=== PATIENT | male | born 1955 | race American Indian/Alaskan Native ===

== ENCOUNTER 2019-01-28 13:46 | Emergency (ER) | payer BC ==
--- NOTE | 2019-01-28 14:11 | Emergency Department Report ---
ED Dizziness HPI - General Chief Complaint: Dizziness Stated Complaint: DIZZINESS Time Seen by Provider: 01/28/19 13:54 Source: patient, EMS Mode of arrival: Stretcher Limitations: No Limitations - History of Present Illness Initial Comments: Mr. Hough is a very pleasant healthy 63-year-old male who presents from grocery store via EMS. He drove to the grocery store without incident. While at the register, he felt lightheaded with sweats. He felt faint. With the assistance of the grocery store staff member, he was gently brougth to the floor. He did not pass out. No preceding symptoms of chest pain or palpitations. However he did feel lightheaded and sweaty prior to the near syncopal episode. Last physical 3 years ago. He recently moved from [facility] 3 weeks ago. 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 No strenuous activity or exercise. He is currently wearing a large fat burning waist belt under his clothes. EMS reports hypotension 81/53 in the field. He ate cereal this morning. Ate a full meal last night. He does not smoke cigarettes. He drinks alcohol wine occasionally. 10-year-old [employer] Grew up in [place], [place] near [place]. Mother age 35 due to complications of rheumatic arthritis. Father age 90 without hx of health problems. Complaint: lightheadedness, near syncope -: Sudden, This afternoon Timing: sudden onset Description: lightheadedness History of Same: No History of Trauma: No Severity: mild Improves With: other (seated position) Associated Symptoms: diaphoresis - Related Data Allergies Allergy/AdvReac Type Severity Reaction Status Date / Time No Known Allergies Allergy Unverified 01/28/19 13:51 ED Review of Systems ROS: Stated complaint: DIZZINESS Other details as noted in HPI Comment: All other systems reviewed and negative Constitutional: denies: fever, malaise Respiratory: denies: cough Cardiovascular: denies: chest pain, edema Gastrointestinal: denies: abdominal pain, nausea, vomiting Neurological: denies: headache ED Past Medical Hx - Past Medical History Previous Medical History?: No - Surgical History Past Surgical History?: No - Family History Family history: no significant - Social History Smoking Status: Never Smoker Substance Use Type: Alcohol ED Physical Exam - General Limitations: No Limitations General appearance: alert, in no apparent distress - Head Head exam: Present: atraumatic, normocephalic - Eye Eye exam: Present: normal appearance - ENT ENT exam: Present: mucous membranes moist - Neck Neck exam: Present: normal inspection - Respiratory Respiratory exam: Present: normal lung sounds bilaterally. Absent: respiratory distress, wheezes, rales, rhonchi - Cardiovascular Cardiovascular Exam: Present: regular rate, normal rhythm, normal heart sounds. Absent: systolic murmur, diastolic murmur, rubs, gallop - GI/Abdominal GI/Abdominal exam: Present: soft, normal bowel sounds, other (around upper abdomen: large cloth/wool abdominal band called "fat burner" ). Absent: distended, tenderness, guarding, rebound - Rectal Rectal exam: Present: deferred - Extremities Exam Extremities exam: Present: normal inspection - Back Exam Back exam: Present: normal inspection - Neurological Exam Neurological exam: Present: alert, oriented X3 - Psychiatric Psychiatric exam: Present: normal affect, normal mood - Skin Skin exam: Present: warm, dry, intact, normal color. Absent: rash ED Course Vital Signs 01/28/19 01/28/19 01/28/19 13:48 13:57 14:00 Temperature 97.7 F Pulse Rate 76 71 Respiratory 18 24 17 Rate Blood Pressure 164/88 Blood Pressure 164/88 [Right] O2 Sat by Pulse 98 98 Oximetry 01/28/19 01/28/19 01/28/19 14:30 15:00 15:30 Temperature Pulse Rate 70 76 74 Respiratory 21 22 23 Rate Blood Pressure 113/77 113/77 Blood Pressure [Right] O2 Sat by Pulse 97 97 96 Oximetry ED Medical Decision Making - Lab Data Result diagrams: 01/28/19 14:07 01/28/19 14:07 Laboratory Results - last 24 hr 01/28/19 01/28/19 01/28/19 14:07 14:07 14:07 WBC 3.5 L RBC 4.40 Hgb 12.7 Hct 38.8 MCV 88 MCH 29 MCHC 33 RDW 14.7 Plt Count 198 Lymph % (Auto) 43.1 H Rock % (Auto) 10.0 H Eos % (Auto) 4.1 Baso % (Auto) 1.3 Lymph # 1.5 Rock # 0.3 Eos # 0.1 Baso # 0.0 Seg Neutrophils % 41.5 Seg Neutrophils # 1.4 L D-Dimer Sodium 141 Potassium 5.1 H Chloride 104.0 Carbon Dioxide 26 Anion Gap 16 BUN 14 Creatinine 0.9 Estimated GFR > 60 BUN/Creatinine Ratio 16 Glucose 134 H Calcium 8.5 Total Bilirubin 0.40 AST 20 ALT 21 Alkaline Phosphatase 57 Troponin T < 0.010 Total Protein 6.6 Albumin 3.6 L Albumin/Globulin Ratio 1.2 Plasma/Serum Alcohol < 0.01 01/28/19 14:07 WBC RBC Hgb Hct MCV MCH MCHC RDW Plt Count Lymph % (Auto) Rock % (Auto) Eos % (Auto) Baso % (Auto) Lymph # Rock # Eos # Baso # Seg Neutrophils % Seg Neutrophils # D-Dimer 136.37 Sodium Potassium Chloride Carbon Dioxide Anion Gap BUN Creatinine Estimated GFR BUN/Creatinine Ratio Glucose Calcium Total Bilirubin AST ALT Alkaline Phosphatase Troponin T Total Protein Albumin Albumin/Globulin Ratio Plasma/Serum Alcohol - EKG Data EKG shows normal: sinus rhythm, axis, intervals, QRS complexes, ST-T waves Rate: normal - Radiology Data AP portable chest radiograph no acute process according to radiology report - Medical Decision Making Near syncope, vasovagal syndrome after prolonged standing with hypotension. In the hot temperature, I suspect Mr. Hough did become overwhelmed with heat. He has been decreasing food intake in order to lose weight. Normal EKG. No risk factors for ACS or arrhythmia. Discharged home. Normal workup here in the ED. Normal d-dimer. Normal troponin. Critical care attestation.: If time is entered above; I have spent that time in minutes in the direct care of this critically ill patient, excluding procedure time. ED Disposition Clinical Impression: Near syncope Disposition: - TO HOME OR SELFCARE Is pt being admited?: No Does the pt Need Aspirin: No Condition: Stable Instructions: Near Syncope (ED) Referrals: CHAYITO HUFFMAN MD [Staff Physician] - 3-5 Days
[2019-01-28 14:21] LABS: Basophils % (Auto) 1.3 % (0.0-1.8); Eosinophils # (Auto) 0.1 K/mm3 (0.0-0.4); Eosinophils % (Auto) 4.1 % (0.0-4.3); Hematocrit 38.8 % (35.5-45.6); Hemoglobin 12.7 gm/dl (11.8-15.2); Lymphocytes # (Auto) 1.5 K/mm3 (1.2-5.4); Lymphocytes % (Auto) 43.1 % (13.4-35.0); Mean Corpuscular HGB Conc 33 % (32-34); Mean Corpuscular Volume 88 fl (84-94); Monocytes # (Auto) 0.3 K/mm3 (0.0-0.8); Platelet Count 198 K/mm3 (140-440); Red Cell Distribution Width 14.7 % (13.2-15.2)
[2019-01-28 14:44] LABS: Alanine Aminotransferase 21 units/L (7-56); Albumin 3.6 g/dL (3.9-5); BUN/Creatinine Ratio 16; Blood Urea Nitrogen 14 mg/dL (9-20); Calcium 8.5 mg/dL (8.4-10.2); Hemolysis Index 3
[2019-01-28 14:55] VITALS: BP 113/77
--- NOTE | 2019-01-28 15:16 | XRay Report ---
PROCEDURE: XR CHEST 1V AP TECHNIQUE: Chest radiograph single view. HISTORY: Lightheadedness/Dizziness COMPARISONS: None . FINDINGS: Heart: Normal. Mediastinum/Vessels: Normal. Lungs/Pleural space: No infiltrate, effusion, or pneumothorax. Bony thorax: No acute osseous abnormality. Life support devices: None. IMPRESSION: No radiographic evidence of acute cardiopulmonary abnormality. This document is electronically signed by Nany Mancini MD., Jan 28 2019 03:14:10 PM ET
== END 2019-01-28 16:06 | disposition home or self-care (01) ==
LOC: ED 13:46
DX: R55 Syncope and collapse (principal); I95.9 Hypotension, unspecified
CPT/HCPCS: 36415; 71045; 80053; 84484; 85025; 85379; 93005; 93010; 99284; G0480; 80320

== ENCOUNTER 2022-04-05 08:31 | Emergency (ER) | payer BC ==
--- NOTE | 2022-04-05 09:57 | Emergency Department Report ---
ED General Adult HPI - General Chief complaint: Hyperglycemia Stated complaint: BLOOD SUGAR NEED CHECK Time Seen by Provider: 04/05/22 09:13 Source: patient, family Mode of arrival: Ambulatory Limitations: No Limitations - History of Present Illness Initial comments: Patient is a 66-year-old male with history of diabetes recently placed on insulin. States he is scheduled for diabetes management classes in which she will be instructed on how to use his equipment/medication. He presents here requesting blood glucose check along with education on how to use his insulin/glucometer. He denies any current symptoms. Severity scale (0 -10): 0 - Related Data Allergies Allergy/AdvReac Type Severity Reaction Status Date / Time No Known Allergies Allergy Unverified 01/28/19 13:51 ED Review of Systems ROS: Stated complaint: BLOOD SUGAR NEED CHECK Other details as noted in HPI Constitutional: denies: chills, fever Respiratory: denies: cough, shortness of breath, wheezing Cardiovascular: denies: chest pain, palpitations Gastrointestinal: denies: abdominal pain, nausea, diarrhea Genitourinary: denies: urgency, dysuria Musculoskeletal: denies: back pain, joint swelling, arthralgia Skin: denies: rash, lesions Neurological: denies: headache, weakness, paresthesias Psychiatric: denies: anxiety, depression ED Past Medical Hx - Past Medical History Hx Diabetes: Yes Hx Arthritis: Yes - Surgical History Past Surgical History?: Yes Additional Surgical History: right leg - Social History Smoking Status: Never Smoker ED Physical Exam - General Limitations: No Limitations General appearance: alert, in no apparent distress - Respiratory Respiratory exam: Present: normal lung sounds bilaterally. Absent: respiratory distress - Cardiovascular Cardiovascular Exam: Present: regular rate, normal rhythm, normal heart sounds - GI/Abdominal GI/Abdominal exam: Present: soft. Absent: distended, tenderness - Neurological Exam Neurological exam: Present: alert, oriented X3 - Psychiatric Psychiatric exam: Present: normal affect, normal mood - Skin Skin exam: Present: warm, dry, intact, normal color ED Course Vital Signs 04/05/22 04/05/22 08:49 09:33 Temperature 97.8 F Pulse Rate 80 75 Respiratory 20 14 Rate Blood Pressure 122/64 Blood Pressure 128/76 [Right] O2 Sat by Pulse 100 100 Oximetry ED Medical Decision Making - Medical Decision Making Fingerstick glucose 251. Patient is in no acute distress with stable vital signs. I encouraged him to follow-up with his scheduled diabetes class however instructed him to always check his blood glucose prior to administration of insulin, as well as prior to bed and upon wakening or if not feeling well. Stable for discharge. Critical care attestation.: If time is entered above; I have spent that time in minutes in the direct care of this critically ill patient, excluding procedure time. ED Disposition Clinical Impression: Diabetes mellitus Disposition: HOME / SELF CARE / HOMELESS Is pt being admited?: No Condition: Stable Instructions: Diabetes Mellitus Type 2 in Adults (ED), Insulin Treatment for Diabetes Mellitus Additional Instructions: Please follow-up with your diabetes class as scheduled. Remember to check your blood sugar prior to administration of insulin as this will determine how much you will need to administer. You should also check your blood sugar 1 hour after eating. You should also check your blood sugar prior to going to bed and upon wakening. You should also check your blood sugar anytime you are not feeling well. Time of Disposition: 10:00
[2022-04-05 09:58] LABS: Basophils % (Auto) 0.6 % (0.0-1.8); Eosinophils % (Auto) 0.4 % (0.0-4.3); Hemoglobin 7.4 gm/dl (11.8-15.2); Lymphocytes # (Auto) 1.2 K/mm3 (1.2-5.4); Lymphocytes % (Auto) 15.1 % (13.4-35.0); Mean Corpuscular HGB Conc 32 % (32-34); Mean Corpuscular Volume 88 fl (84-94); Monocytes # (Auto) 0.8 K/mm3 (0.0-0.8); Monocytes % (Auto) 9.9 % (0.0-7.3); Platelet Count 303 K/mm3 (140-440); Red Blood Count 2.62 M/mm3 (3.65-5.03); Red Cell Distribution Width 14.7 % (13.2-15.2)
[2022-04-05 10:06] LABS: Alanine Aminotransferase 30 units/L (7-56); Albumin 3.6 g/dL (3.9-5); BUN/Creatinine Ratio 13; Blood Urea Nitrogen 10 mg/dL (9-20); Calcium 8.3 mg/dL (8.4-10.2); Hemolysis Index 2
[2022-04-05 10:36] VITALS: BP 106/62
[2022-04-05 10:37] LABS: Mucus,Urine FEW /HPF
[2022-04-05 11:07] LABS: Bilirubin,Urine Negative (Negative); Blood,Urine 2+ (Negative); Color,Urine Straw (Yellow)
[2022-04-05 11:08] LABS: PH,Urine 6.5 (5.0-7.0); Protein,Urine 300 mg/dL mg/dL (Negative); Urobilinogen,Urine < 2.0 mg/dL (<2.0)
--- NOTE | 2022-04-06 09:47 | Electrocardiograph Report ---
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
== END 2022-04-05 11:00 | disposition home or self-care (01) ==
LOC: ED 08:31
DX: E11.9 Type 2 diabetes mellitus without complications (principal); M19.90 Unspecified osteoarthritis, unspecified site; Z98.890 Other specified postprocedural states; Z79.899 Other long term (current) drug therapy
CPT/HCPCS: 36415; 80053; 81001; 82962; 85025; 93005; 99283; 99284

== ENCOUNTER 2022-05-17 21:29 | Emergency (ER) | payer BC ==
[2022-05-18 01:36] VITALS: BP 153/71
[2022-05-18 02:43] LABS: Basophils % (Auto) 0.5 % (0.0-1.8); Eosinophils # (Auto) 0.2 K/mm3 (0.0-0.4); Eosinophils % (Auto) 2.3 % (0.0-4.3); Hematocrit 28.9 % (35.5-45.6); Hemoglobin 8.8 gm/dl (11.8-15.2); Lymphocytes # (Auto) 1.5 K/mm3 (1.2-5.4); Lymphocytes % (Auto) 22.7 % (13.4-35.0); Mean Corpuscular HGB Conc 31 % (32-34); Mean Corpuscular Volume 77 fl (84-94); Monocytes # (Auto) 0.7 K/mm3 (0.0-0.8); Monocytes % (Auto) 10.4 % (0.0-7.3); Platelet Count 566 K/mm3 (140-440); Red Blood Count 3.78 M/mm3 (3.65-5.03); Red Cell Distribution Width 19.3 % (13.2-15.2)
--- NOTE | 2022-05-18 02:54 | XRay Report ---
CHEST 2 VIEWS INDICATION / CLINICAL INFORMATION: Chest Pain. COMPARISON: Chest x-ray 01/28/2019 FINDINGS: SUPPORT DEVICES: None. HEART / MEDIASTINUM: Heart size and mediastinal contour appear within normal limits. LUNGS / PLEURA: No significant pulmonary or pleural abnormality. No pneumothorax. BONES: No significant osseous abnormality. ADDITIONAL FINDINGS: No significant additional findings. IMPRESSION: 1. No active cardiopulmonary disease. Signer Name: Bob Cornejo II, MD Signed: 05/18/2022 2:49 AM Workstation Name: [id number]
--- NOTE | 2022-05-20 09:33 | Electrocardiograph Report ---
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
--- NOTE | 2022-05-20 09:36 | Electrocardiograph Report ---
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
== END 2022-05-19 10:58 | disposition left against medical advice (07) ==
LOC: ED 21:29
DX: R07.89 Other chest pain (principal); Z53.21 Procedure and treatment not carried out due to patient leaving prior to being seen by health care provider
CPT/HCPCS: 36415; 71046; 84484; 85025; 93005